=== PATIENT | male | born 1965 | race Hispanic/Latino ===

== ENCOUNTER 2019-10-02 06:10 | Observation (INO) | payer BC ==
[2019-10-02 06:45] LABS: Hematocrit 46.4 % (35.5-45.6); Mean Corpuscular HGB Conc 35 % (32-34); Mean Corpuscular Volume 95 fl (84-94); Platelet Count 231 K/mm3 (140-440); Red Blood Count 4.88 M/mm3 (3.65-5.03); Red Cell Distribution Width 13.3 % (13.2-15.2)
[2019-10-02 06:56] LABS: INR 1.04 (0.87-1.13); Partial Thromboplastin Time 28.6 Sec. (24.2-36.6)
[2019-10-02] MEDS ORDERED: SODIUM CHLORIDE 0.9% 500 ML 500 ML IV SCH (07:00)
[2019-10-02] MEDS ORDERED: ASPIRIN EC 325 MG TAB PO ONE (07:00)
[2019-10-02] MEDS ORDERED: HEPARIN/NS 5000 UNIT/500ML 1,000 ML IR ONE (07:46)
[2019-10-02] MEDS ORDERED: VERAPAMIL 5 MG/2 ML INJ ONE (07:47)
[2019-10-02] MEDS ORDERED: NITROGLYCERIN SYRINGE 3 ML ONE (07:47)
[2019-10-02] MEDS ORDERED: MIDAZOLAM 2 MG/2 ML INJ ONE (07:47)
[2019-10-02] MEDS ORDERED: fentaNYL 100 MCG/2 ML INJ ONE (07:47)
[2019-10-02] MEDS ORDERED: LIDOCAINE (2%) 20 MG/1 ML VIAL 20 ML MDV INFILTRATI ONE (07:47)
[2019-10-02] MEDS: HEPARIN 10,000 UNITS/10 ML VIAL ONE ×3 (08:30→09:11)
[2019-10-02] MEDS ORDERED: PRASUGREL 10 MG TAB PO ONE ×2 (09:15→09:28)
--- NOTE | 2019-10-02 09:34 | Cardiac Catherization Report ---
CARDIAC CATHETERIZATION REFERRING PHYSICIAN: Dr. Dugan. INDICATION FOR PROCEDURE: The patient is a very pleasant 53-year-old gentleman who has significant chest pain, unstable angina, large reversible anterior defect on nuclear stress test, referred for left heart catheterization. Risks, benefits, alternatives explained at length prior to obtaining informed consent. PROCEDURE IN DETAIL: The patient was brought to catheterization lab in a postabsorptive state, prepped and draped in sterile fashion. Juarez's test in right hand was normal. A 2 mL of 2% lidocaine used to anesthetize the right wrist. A standard 6-Wolof hydrophilic sheath used to cannulate the right radial artery via modified Seldinger technique. All exchanges performed to exchange a J-tip guidewire. JL3.5 catheter used to engage the left main. No dampening or ventricularization. Cineangiography performed in all projections. JR4 catheter used to cross the aortic valve under fluoroscopic guidance. Left ventriculography performed in 30 [place] and [place] projections via hand injections, catheter flushed. Manual pullback performed with continuous pressure monitoring. Catheter used to engage the right coronary. No dampening or ventricularization. Cineangiography performed in all projections. DATA: Aortic pressure is 120/80, LV pressure is 120, LVP of 20 mmHg. Left ventriculography reveals normal systolic performance with estimated ejection fraction of 55-60%. No evidence of aortic stenosis. CORONARY ANATOMY: This is a right dominant system. Right coronary is a moderate sized vessel, courses AV groove, distally bifurcates in the posterior descending and posterolateral branches. No discrete stenosis noted. Extensive right to left collaterals identified. Mild luminal irregularities right coronary, but no obstructive disease identified. Left main without significant disease, bifurcates left anterior descending and left circumflex. Left circumflex is moderate sized vessel, courses AV groove, scattered luminal irregularities, but no significant disease. There is a subtotal occlusion of the high mid LAD with CELIA 1 flow. Extensive right to left collaterals identified. This is the culprit lesion, after reviewing in multiple views we decided to proceed with PCI. Heparin is given. Abnormal ACT confirmed. EBU 3.5 guide used without difficulty. We used a [place] wire to cross the lesion without difficulty. Predilated lesion with a 2.0 x 15 balloon. We used a 2.75 x 26 Resolute Alon drug-eluting stent deployed at 12 EFRAIN for 30 seconds. Excellent result. Intravascular ultrasound was performed and reveals well apposed and well expanded stent. Final angiogram reveals excellent result, CELIA 3 flow, minimal disease distally. The patient is chest pain free, no EKG changes. I directly supervised the administration of moderate sedation with fentanyl and Versed from 8:25 a.m. to 9:15 a.m. There were no immediate complications. CONCLUSIONS: 1. Severe single vessel disease with culprit subtotal occlusion of high mid LAD with extensive right to left collaterals. A. Successful IVUS guided PCI with placement of drug-eluting stent (Alon 2.75 x 26) with excellent final angiographic and ultrasonographic results. Nonobstructive disease in remainder of the coronary tree. 2. Preserved left ventricular systolic performance, estimated ejection fraction of 55-60%. 3. No evidence of aortic stenosis. 4. Normal LVEDP. Aggressive risk factor modification, Effient, aspirin, statin therapy, will need aggressive secondary and primary prevention moving forward. Standard radial care, results of procedure explained to the patient and family. All questions and concerns were addressed. JOB# [id number] SBM/NTS
[2019-10-02] MEDS ORDERED: ATROPINE 0.1% (1 MG/10 ML) CARDIAC SYRINGE ONE (11:02)
[2019-10-02] MEDS ORDERED: SODIUM CHLORIDE 0.9% 1000 ML 1,000 ML IV SCH (18:30)
[2019-10-02] MEDS ORDERED: MORPHINE 2 MG/1 ML INJ IV ONE (19:00)
[2019-10-03 05:20] LABS: Basophils % (Auto) 0.5 % (0.0-1.8); Eosinophils # (Auto) 0.2 K/mm3 (0.0-0.4); Eosinophils % (Auto) 2.8 % (0.0-4.3); Hematocrit 42.9 % (35.5-45.6); Lymphocytes # (Auto) 1.5 K/mm3 (1.2-5.4); Lymphocytes % (Auto) 28.1 % (13.4-35.0); Mean Corpuscular HGB Conc 35 % (32-34); Mean Corpuscular Volume 95 fl (84-94); Monocytes # (Auto) 0.6 K/mm3 (0.0-0.8); Monocytes % (Auto) 10.5 % (0.0-7.3); Platelet Count 200 K/mm3 (140-440); Red Blood Count 4.51 M/mm3 (3.65-5.03); Red Cell Distribution Width 13.1 % (13.2-15.2)
[2019-10-03 05:35] LABS: Creatine Kinase MB 4.1 ng/mL (0.0-4.0)
[2019-10-03 05:36] LABS: BUN/Creatinine Ratio 13; Blood Urea Nitrogen 10 mg/dL (9-20); Calcium 8.8 mg/dL (8.4-10.2); Hemolysis Index 24
[2019-10-03 06:22] LABS: Chol/HDL Ratio 3.59 %; HDL Cholesterol 47 mg/dL (40-59); LDL Cholesterol,Direct 118 mg/dL (50-130)
[2019-10-03] MEDS ORDERED: NITROGLYCERIN 0.4 MG TAB SUBL SL PRN (09:02)
[2019-10-03 09:06] VITALS: BP 111/78
--- NOTE | 2019-10-03 09:14 | XRay Report ---
CHEST 1 VIEW INDICATION: post pci COMPARISON: None FINDINGS: Support devices: None Heart: Normal Lungs/Pleura: No acute pulmonary or pleural findings. IMPRESSION: 1. No acute disease. Signer Name: Farhad Sutherland MD Signed: 10/03/2019 9:10 AM Workstation Name: [id number]
[2019-10-03] MEDS ORDERED: METOPROLOL TARTRATE 25 MG TAB PO SCH (10:00)
[2019-10-03] MEDS ORDERED: ASPIRIN 81 MG TAB CHEW PO SCH (10:00)
[2019-10-03] MEDS ORDERED: PRASUGREL 10 MG TAB PO SCH (10:00)
[2019-10-03] MEDS ORDERED: ASPIRIN EC 81 MG TAB PO SCH ×2 (22:00)
== END 2019-10-03 10:34 | disposition home or self-care (01) ==
LOC: CATHLABREC 06:10 → 4A 12:34
PROVIDERS: ADMIT Internal Medicine; ATTEND Internal Medicine
DX: I20.0 Unstable angina (principal); Z98.61 Coronary angioplasty status
CPT/HCPCS: 36415; 71045; 80048; 80061; 82550; 82553; 84484; 85025; 85027; 85347; 85610; 85730; 92978; 93005; 93010; 93458; 96374; A9270; C1725; C1753; C1769; C1874; C1887; C1894; C9600; G0378; J1644; J2250; J2270; J3010; J7030; J7040; 92928; J0461; Q9967